=== PATIENT | female | born 1955 | race Hispanic/Latino ===

== ENCOUNTER 2016-05-31 06:40 | Day surgery (SDC) | payer BC ==
[2016-05-24 12:27] LABS: Basophils % (Auto) 0.5 % (0.0-1.8); Eosinophils % (Auto) 3.1 % (0.0-4.3); Hematocrit 33.9 % (30.3-42.9); Hemoglobin 10.8 gm/dl (10.1-14.3); Mean Corpuscular HGB Conc 32 % (30-34); Mean Corpuscular Volume 77 fl (79-97); Platelet Count 184 K/mm3 (140-440); Red Blood Count 4.39 M/mm3 (3.65-5.03); Red Cell Distribution Width 14.8 % (13.2-15.2); White Blood Count 5.2 K/mm3 (4.5-11.0)
[2016-05-24 12:36] LABS: Mean Corpuscular Hemoglobin 25 pg (28-32)
--- NOTE | 2016-05-24 12:44 | Anesthesia Consultation ---
Anesthesia Consult and Med Hx Date of service: 05/24/16 - Airway Anesthetic Teeth Evaluation: Dentures ROM Head & Neck: Adequate Mental/Hyoid Distance: Adequate Mallampati Class: Class II Intubation Access Assessment: Probably Good - Pulmonary Exam CTA: Yes - Cardiac Exam Cardiac Exam: RRR - Pre-Operative Health Status ASA Pre-Surgery Classification: ASA3 Proposed Anesthetic Plan: General - Pre-Anesthesia Comment Pre-Anesthesia Comments: Cardiac consult in chart. Nuclear study negative for ischemia. EF 52%. ECG: NSR. peripheral edema - Pulmonary Hx Smoking: Yes SOB: Yes (W/EXERTION) COPD: (QUESTIONABLE MILD COPD) Hx Sleep Apnea: Yes (CPAP) - Cardiovascular System Hx Hypertension: Yes (10 YRS, HLD) - Central Nervous System Hx Back Pain: Yes (chronic pain syndrome) Hx Psychiatric Problems: Yes (anxiety/depression) - Endocrine Hx Non-Insulin Dependent Diabetes: Yes - Hematic Hx Anemia: Yes (RESOLVED) - Other Systems Hx Alcohol Use: Yes (VERY RARELY MAYBE 1-2 YEARLY) Hx Substance Use: No Hx Cancer: Yes (UPPER LIP BASAL CELL SKIN CANCER REMOVED) Hx Obesity: Yes - Additional Comments Anesthesia Medical History Comments: NAC
[2016-05-24 13:11] LABS: Anion Gap 15 mmol/L; Blood Urea Nitrogen 11 mg/dL (7-17); Calcium 10.1 mg/dL (8.4-10.2); Carbon Dioxide 28 mmol/L (22-30); Chloride 101.4 mmol/L (98-107); Glucose 103 mg/dL (65-100); Potassium 3.9 mmol/L (3.6-5.0); Sodium 140 mmol/L (137-145)
[~2016-05-31 06:40] MED LIST: NACL 0.9% 1000 ML 1,000 ML IV SCH; PEPCID IV NR; VERSED IV NR
--- NOTE | 2016-05-31 09:51 | Short Stay Summary ---
Short Stay Documentation Date of service: 05/31/16 - History H&P: obtained from office - Allergies and Medications Current Medications: Allergies kiwi Allergy (Verified 05/18/16 15:35) Anaphylaxis levofloxacin [From Levaquin] Adverse Reaction (Verified 05/18/16 15:35) Swelling nitrofurantoin [From Macrobid] Adverse Reaction (Verified 05/18/16 15:35) Nausea nitrofurantoin macrocrystalline [From Macrobid] Adverse Reaction (Verified 05/18 15:35) Nausea Sulfa (Sulfonamide Antibiotics) Adverse Reaction (Verified 05/18/16 15:35) Nausea Home Medications Medication Instructions Recorded Confirmed Last Taken Type ARIPiprazole [Abilify TAB] 5 mg PO DAILY 05/18/16 05/18/16 Unknown History Aspirin EC [Aspirin Enteric Coated 81 mg PO QDAY 05/18/16 05/18/16 Unknown History TAB] Buprenorphine [Butrans] 1 each TD 1XW 05/18/16 05/18/16 Unknown History Cholecalciferol Vit D3 [Vitamin D3] 4,000 unit PO QDAY 05/18/16 05/18/16 Unknown History Dicyclomine [Bentyl] 10 mg PO BID 05/18/16 05/18/16 Unknown History Gabapentin [Neurontin] 300 mg PO Q8HR 05/18/16 05/18/16 Unknown History HYDROcodone/APAP 10-325 [[place] 1 each PO QHS 05/18/16 05/18/16 Unknown History 10/325] Ibuprofen [Motrin] 800 mg PO Q8HR PRN 05/18/16 05/18/16 Unknown History Lisinopril [Zestril TAB] 40 mg PO QDAY 05/18/16 05/18/16 Unknown History Methocarbamol [Robaxin TAB] 750 mg PO Q8H 05/18/16 05/18/16 Unknown History Nortriptyline [Pamelor] 25 mg PO QHS 05/18/16 05/18/16 Unknown History [place]-3/Dha/Epa/Fish Oil [[place] 3 1 tab PO QHS 05/18/16 05/18/16 Unknown History 500 Softgel] Sertraline [Zoloft] 200 mg PO QHS 05/18/16 05/18/16 Unknown History Simvastatin [Zocor TAB] 80 mg PO QHS 05/18/16 05/18/16 Unknown History Vitamin B Complex [B Complex] 1 each PO DAILY 05/18/16 05/18/16 Unknown History amLODIPine [Norvasc] 10 mg PO DAILY 05/18/16 05/18/16 Unknown History metFORMIN [Glucophage] 100 mg PO QHS 05/18/16 05/18/16 Unknown History predniSONE [Deltasone] 5 mg PO QDAY 05/18/16 05/18/16 Unknown History Active Medications Famotidine (Pepcid) 20 mg IV PREOP NR Stop: 05/31/16 23:59 Last Admin: 05/31/16 09:17 Dose: 20 mg Sodium Chloride (Nacl 0.9% 1000 Ml) 1,000 mls @ 42 mls/hr IV DIRECT KEI Last Admin: 05/31/16 09:15 Dose: 42 mls/hr Methylprednisolone Sodium Succinate (Solu-Medrol) 125 mg IV PREOP NR Stop: 05/31/16 23:59 Last Admin: 05/31/16 09:19 Dose: 125 mg Midazolam HCl (Versed) 2 mg IV PREOP NR Stop: 05/31/16 23:59 Last Admin: 05/31/16 09:35 Dose: 2 mg - Brief post op/procedure progress note Date of procedure: 05/31/16 Pre-op diagnosis: hematuria left renal stone 9mm Post-op diagnosis: same Procedure: cysto left renal eswl Anesthesia: GETA Findings: cysto neg good vis stone Surgeon: ESHA MACKAY Estimated blood loss: minimal Pathology: none Condition: stable - Hospital course Hospital course: or pacu home - Disposition Condition at discharge: Good Disposition: DISCHARGED TO HOME OR SELFCARE Short Stay Discharge Plan Activity: advance as tolerated Diet: advance as tolerated Follow up with: ESHA MACKAY MD [Staff Physician] - 7 Days
[2016-05-31] MEDS ORDERED: DIPRIVAN 10 MG/ML IV ONE (10:20)
[2016-05-31] MEDS ORDERED: SUBLIMAZE ONE (10:20)
[2016-05-31] MEDS ORDERED: XYLOCAINE MPF 2% ONE (10:22)
[2016-05-31] MEDS ORDERED: ANCEF/STERILE WATER 2 GM/20 ML IV ONE (11:04)
[2016-05-31] MEDS ORDERED: ZOFRAN ONE (11:33)
--- NOTE | 2016-05-31 12:59 | Post Anesthesia Evaluation ---
- Post Anesthesia Evaluation Patient Participated: Yes Airway Patent: Yes Stable Respiratory Function: Yes Nausea/Vomiting: No Temp > 96.8F: Yes Pain Manageable: Yes Adequeate Hydration: Yes Anesthesia Complications: No Block Receding Appropriately: Not Applicable Patient on Ventilator: No
--- NOTE | 2016-05-31 12:59 | Anesthesia Day of Surgery ---
Anesthesia Day of Surgery - Day of Surgery Patient Examined: Yes Patient H&P Reviewed: Yes Patient is NPO: Yes
[2016-05-31] MEDS ORDERED: ANCEF/STERILE WATER 2 GM/20 ML IV NR (13:00)
--- NOTE | 2016-05-31 14:42 | Operative Report ---
PREOPERATIVE DIAGNOSES: 1. Left renal 9 mm calculus. 2. Hematuria. POSTOPERATIVE DIAGNOSES: 1. Left renal 9 mm calculus. 2. Hematuria. PROCEDURE: 1. Cystoscopy. 2. Left renal ESWL. SURGEON: Brady Alamo MD ANESTHESIA: General. SPECIMENS: None. ESTIMATED BLOOD LOSS: Minimal. COMPLICATIONS: None. FINDINGS: Good visualization of the stone, cystoscopy negative. CLINICAL INDICATIONS: Counseled RCBA, antibiotics, SCDs, desire to proceed. Start the antibiotics 2 days before the procedures. DESCRIPTION OF PROCEDURE: Transferred to OR suite, supine position, anesthesia, dorsal lithotomy, prepped and draped in standard fashion. A flexible cystoscope passed. Pancystoscopy throughout the bladder demonstrated no tumors, lesions, or other abnormality. Bilateral UO, normal orientation and position. Scope withdrawn. The patient then positioned for left ESWL. Stone was visualized, good visualization. A 2500 shocks were delivered, majority of the time was 4.0 kilovolts, but some interval with 5.0 kilovolts. At the end of the procedure, there was mild decrease in density of the stone. The patient was awakened, intermittent repositioning done as necessary. The patient awakened and transferred to the PACU in good and stable condition. JOB# [id number] ATS/NTS
[2016-05-31 14:47] VITALS: BP 118/73
== END 2016-05-31 14:30 | disposition home or self-care (01) ==
LOC: OR 06:40
PROVIDERS: ATTEND Urology
DX: N20.0 Calculus of kidney (principal); I10 Essential (primary) hypertension; G47.30 Sleep apnea, unspecified; F41.9 Anxiety disorder, unspecified; F32.9 Major depressive disorder, single episode, unspecified; J44.9 Chronic obstructive pulmonary disease, unspecified; M19.90 Unspecified osteoarthritis, unspecified site; M41.9 Scoliosis, unspecified; E78.00 Pure hypercholesterolemia, unspecified; E11.9 Type 2 diabetes mellitus without complications; E66.9 Obesity, unspecified; Z68.39 Body mass index [BMI] 39.0-39.9, adult; Z85.828 Personal history of other malignant neoplasm of skin; Z87.891 Personal history of nicotine dependence; Z72.89 Other problems related to lifestyle; Z87.440 Personal history of urinary (tract) infections
CPT/HCPCS: 36415; 50590; 80048; 82962; 85025; J0690; J2250; J2405; J2704; J2930; J3010; J7030

== ENCOUNTER 2018-02-13 06:20 | Day surgery (SDC) | payer BC ==
[2018-02-05 13:34] LABS: Basophils % (Auto) 0.6 % (0.0-1.8); Eosinophils # (Auto) 0.1 K/mm3 (0.0-0.4); Eosinophils % (Auto) 1.6 % (0.0-4.3); Hematocrit 37.7 % (30.3-42.9); Hemoglobin 12.5 gm/dl (10.1-14.3); Lymphocytes # (Auto) 1.4 K/mm3 (1.2-5.4); Lymphocytes % (Auto) 23.4 % (13.4-35.0); Mean Corpuscular HGB Conc 33 % (30-34); Mean Corpuscular Hemoglobin 26 pg (28-32); Mean Corpuscular Volume 79 fl (79-97); Monocytes # (Auto) 0.3 K/mm3 (0.0-0.8); Monocytes % (Auto) 5.5 % (0.0-7.3); Platelet Count 244 K/mm3 (140-440)
--- NOTE | 2018-02-05 14:19 | Anesthesia Consultation ---
Anesthesia Consult and Med Hx Date of service: 02/05/18 - Airway Anesthetic Teeth Evaluation: Poor ROM Head & Neck: Adequate Mental/Hyoid Distance: Adequate Mallampati Class: Class III Intubation Access Assessment: Possibly Difficult - Pulmonary Exam CTA: Yes - Cardiac Exam Cardiac Exam: RRR - Pre-Operative Health Status ASA Pre-Surgery Classification: ASA3 Proposed Anesthetic Plan: General (Fibromyalgia, CHF, HTN, DM, Morbid Obesity) - Pulmonary Hx Smoking: Yes (STOPPED 1995) SOB: Yes (SOB WITH ACTIVITY) COPD: Yes (PER HX- PT DENIES) Hx Sleep Apnea: Yes (DX SLEEP APNEA WITH IREGULAR CPAP USE) - Cardiovascular System Hx Hypertension: Yes (X 11 YRS) Hx Peripheral Vascular Disease: Yes (HAS VEIN REFLUX IN DEEP VEINS PER DOPPLER) - Central Nervous System Hx Back Pain: Yes (NECK AND BACK PAIN- CHRONIC) Hx Psychiatric Problems: Yes (anxiety/depression) - Endocrine Hx Non-Insulin Dependent Diabetes: Yes - Hematic Hx Anemia: Yes (RESOLVED) - Other Systems Hx Alcohol Use: Yes (VERY RARELY MAYBE 1-2 YEARLY) Hx Substance Use: No Hx Cancer: Yes (SKIN CA ON LIP REMOVED) Hx Obesity: Yes
[2018-02-05 14:49] LABS: Alanine Aminotransferase 14 units/L (7-56); Albumin 4.5 g/dL (3.9-5); BUN/Creatinine Ratio 29; Blood Urea Nitrogen 23 mg/dL (7-17); Calcium 10.8 mg/dL (8.4-10.2); Hemolysis Index 8
[~2018-02-13 06:20] MED LIST changes: +NEURONTIN PO NR; -PEPCID IV NR
[2018-02-13] MEDS ORDERED: ceFAZolin 2 GM in NACL 0.9% 100 ML IV ONE (06:54)
[2018-02-13] MEDS ORDERED: SUBLIMAZE ONE (07:19)
[2018-02-13] MEDS ORDERED: XYLOCAINE MPF 2% ONE (07:19)
[2018-02-13] MEDS ORDERED: DIPRIVAN 10 MG/ML IV ONE (07:19)
[2018-02-13] MEDS ORDERED: PEPCID IV NR (08:00)
--- NOTE | 2018-02-13 08:01 | Anesthesia Day of Surgery ---
Anesthesia Day of Surgery - Day of Surgery Patient Examined: Yes Patient H&P Reviewed: Yes Patient is NPO: Yes Cardiac Clearance: Yes
[2018-02-13] MEDS ORDERED: FLAGYL 500 MG/100 ML 500 MG/100 ML BAG IV NR (08:30)
[2018-02-13] MEDS ORDERED: DILAUDID IV PRN (08:30)
--- NOTE | 2018-02-13 09:42 | Operative Report ---
PREOPERATIVE DIAGNOSIS: Left renal lower pole 13 mm stone. POSTOPERATIVE DIAGNOSIS: Left renal lower pole 13 mm stone. PROCEDURE: Left renal ESWL. SURGEON: Brady Alamo MD ANESTHESIA: General. SPECIMENS: None. ESTIMATED BLOOD LOSS: Minimal. COMPLICATIONS: None. IMPLANTS: None. FINDINGS: Good visualization of the stone, significant spreading out of stone by the end of the procedure. CLINICAL INDICATION: Counseled RCBA, antibiotics, SCD. DESCRIPTION OF PROCEDURE: Transferred to OR suite in supine position, anesthesia, prepped and draped in standard fashion. Biplanar fluoroscopy was used to target the stone with an F2, intermittent repositioning throughout the procedure. A total of 2500 shocks were delivered with starting at 4 kilovolts maximum for short period of time up to 8 kilovolts, but the majority between the 5-6 kilovolts during the procedure. At the end of the procedure, there was a moderate to good disbursement of stones, which had the appearance of probable fragmentation with the distortion of the stone appearance. At the end of the procedure, the patient was awakened and transferred to PACU in good and stable condition. PLAN: Follow up in office 1-2 weeks with a KUB prior to followup. JOB# [id number] ATS/NTS
[2018-02-13 10:20] VITALS: BP 124/63
--- NOTE | 2018-02-13 10:27 | Short Stay Summary ---
Short Stay Documentation Date of service: 02/13/18 - History H&P: obtained from office - Allergies and Medications Current Medications: Allergies kiwi Allergy (Verified 05/18/16 15:35) Anaphylaxis levofloxacin [From Levaquin] Adverse Reaction (Verified 05/18/16 15:35) Swelling nitrofurantoin [From Macrobid] Adverse Reaction (Verified 05/18/16 15:35) Nausea nitrofurantoin macrocrystalline [From Macrobid] Adverse Reaction (Verified 05/18 15:35) Nausea Sulfa (Sulfonamide Antibiotics) Adverse Reaction (Verified 05/18/16 15:35) Nausea Home Medications Medication Instructions Recorded Confirmed Last Taken Type ARIPiprazole [Abilify TAB] 5 mg PO DAILY 05/18/16 02/13/18 02/13/18 History Aspirin EC [Aspirin Enteric Coated 81 mg PO QDAY 05/18/16 02/13/18 02/06/18 History TAB] Buprenorphine [Butrans] 1 each TD 1XW 05/18/16 02/13/18 02/12/18 History Cholecalciferol Vit D3 [Vitamin D3] 4,000 unit PO QDAY 05/18/16 02/13/18 History Dicyclomine [Bentyl] 10 mg PO BID 05/18/16 02/13/18 02/13/18 History Gabapentin [Neurontin] 300 mg PO Q8HR 05/18/16 02/13/18 02/13/18 History HYDROcodone/APAP 10-325 [[place] 1 each PO PRN PRN 05/18/16 02/13/18 02/13/18 History 10/325] Lisinopril [Zestril TAB] 10 mg PO QDAY 05/18/16 02/13/18 02/13/18 History Methocarbamol [Robaxin TAB] 750 mg PO Q8H 05/18/16 02/13/18 02/13/18 History Nortriptyline [Pamelor] 50 mg PO QHS 05/18/16 02/13/18 02/12/18 History [place]-3/Dha/Epa/Fish Oil [[place] 3 1 tab PO QHS 05/18/16 02/13/18 02/12/18 History 500 Softgel] Sertraline [Zoloft] 200 mg PO QHS 05/18/16 02/13/18 02/13/18 History Vitamin B Complex [B Complex] 1 each PO DAILY 05/18/16 02/13/18 02/12/18 History metFORMIN [Glucophage] 1,000 mg PO QHS 05/18/16 02/13/18 02/12/18 History predniSONE [Deltasone] 5 mg PO BID 05/18/16 02/13/18 02/13/18 History AtorvaSTATin [Lipitor] 40 mg PO QHS 02/04/18 02/13/18 02/12/18 History Carvedilol [Coreg] 6.25 mg PO BID 02/04/18 02/13/18 02/13/18 History Duloxetine HCl [Cymbalta] 60 mg PO DAILY 02/04/18 02/13/18 02/13/18 History Fesoterodine Fumarate [Toviaz] 8 mg PO QDAY 02/04/18 02/13/18 02/12/18 History Furosemide [Lasix TAB] 40 mg PO TID 02/04/18 02/13/18 02/12/18 History Lactobacillus Acidophilus/Fos 1 each PO DAILY 02/04/18 02/13/18 02/12/18 History [Acidophilus Probiotic Tablet] Lubiprostone (Nf) [Amitiza Cap 24 mcg PO DAILY 02/04/18 02/13/18 02/12/18 History (Nf)] Potassium Citrate [Potassium 10 meq PO DAILY 02/04/18 02/13/18 02/13/18 History Citrate ER] Spironolactone [Aldactone] 25 mg PO QDAY 02/04/18 02/13/18 02/12/18 History Active Medications Famotidine (Pepcid) 20 mg IV PREOP NR Stop: 02/13/18 22:00 Last Admin: 02/13/18 07:27 Dose: 20 mg Gabapentin (Neurontin) 300 mg PO PREOP NR Stop: 02/13/18 23:59 Last Admin: 02/13/18 06:40 Dose: 300 mg Hydromorphone HCl (Dilaudid) 0.25 mg IV Q10MIN PRN PRN Reason: Pain, Moderate (4-6) Stop: 02/13/18 12:30 Sodium Chloride (Nacl 0.9% 1000 Ml) 1,000 mls @ 42 mls/hr IV DIRECT KEI Last Admin: 02/13/18 06:40 Dose: 42 mls/hr Metronidazole (Flagyl 500 Mg/100 Ml) 500 mg in 100 mls @ 200 mls/hr IV PREOP NR ; Protocol Stop: 02/13/18 15:00 Midazolam HCl (Versed) 2 mg IV PREOP NR Stop: 02/13/18 23:59 Last Admin: 02/13/18 06:45 Dose: 2 mg - Brief post op/procedure progress note Date of procedure: 02/13/18 Pre-op diagnosis: left renal stone 10-13mm Post-op diagnosis: same Procedure: left eswl Anesthesia: GETA Findings: good vis and disp Surgeon: ESHA MACKAY Estimated blood loss: minimal Pathology: none Condition: stable - Hospital course Hospital course: or pacu home - Disposition Condition at discharge: Good Disposition: DC-01 TO HOME OR SELFCARE Short Stay Discharge Plan Activity: advance as tolerated Diet: advance as tolerated Additional Instructions: DIET - REGULAR INCREASE FLUIDS BY MOUTH. 8-10 CUPS FLUIDS PER DAY . STRAIN ALL URINE TAKE SEDIMENT WITH YOU ON YOUR FOLLOW UP VISIT. APPOINTMENT - CALL DR MACKAY'S OFFICE FOR FOLLOW VISIT AND FOR ANY QUESTIONS OR CONCERNS RELATED TO PROCEDURE. Follow up with: ESHA MACKAY MD [Staff Physician] - 7 Days Forms: Outpatient Surgery DC Inst.
--- NOTE | 2018-02-13 10:43 | Post Anesthesia Evaluation ---
- Post Anesthesia Evaluation Patient Participated: Yes Airway Patent: Yes Stable Respiratory Function: Yes Nausea/Vomiting: No Temp > 96.8F: Yes Pain Manageable: Yes Adequeate Hydration: Yes Anesthesia Complications: No
== END 2018-02-13 10:49 | disposition home or self-care (01) ==
LOC: OR 06:20
PROVIDERS: ATTEND Urology
DX: N20.0 Calculus of kidney (principal); I11.0 Hypertensive heart disease with heart failure; I50.9 Heart failure, unspecified; E78.00 Pure hypercholesterolemia, unspecified; J44.9 Chronic obstructive pulmonary disease, unspecified; G47.30 Sleep apnea, unspecified; K21.9 Gastro-esophageal reflux disease without esophagitis; M19.90 Unspecified osteoarthritis, unspecified site; E11.9 Type 2 diabetes mellitus without complications; F41.9 Anxiety disorder, unspecified; F32.9 Major depressive disorder, single episode, unspecified; E66.9 Obesity, unspecified; Z68.36 Body mass index [BMI] 36.0-36.9, adult; Z86.2 Personal history of diseases of the blood and blood-forming organs and certain disorders involving the immune mechanism; Z80.8 Family history of malignant neoplasm of other organs or systems; Z88.8 Allergy status to other drugs, medicaments and biological substances; Z90.710 Acquired absence of both cervix and uterus; Z88.2 Allergy status to sulfonamides; Z79.84 Long term (current) use of oral hypoglycemic drugs; Z79.82 Long term (current) use of aspirin; Z79.899 Other long term (current) drug therapy; Z87.891 Personal history of nicotine dependence; Z98.890 Other specified postprocedural states
CPT/HCPCS: 36415; 50590; 80053; 82962; 85025; J0690; J2250; J2704; J3010; J7030